=== PATIENT | male | born 1965 | race African-American/Black ===

== ENCOUNTER 2019-06-14 15:10 | Inpatient (IN) ==
[2019-06-14] MEDS ORDERED: ZALEPLON 5 MG CAPSULE PO PRN (17:23)
[2019-06-14] MEDS ORDERED: GLUCAGON 1 MG VIAL IM PRN (17:23)
[2019-06-14] MEDS ORDERED: ACETAMINOPHEN 325 MG TABLET PO PRN (17:23)
[2019-06-14] MEDS ORDERED: diphenhydrAMINE CAP 25 MG CAPSULE PO PRN (17:23)
[2019-06-14] MEDS ORDERED: ONDANSETRON 4 MG/2 ML VIAL IV PRN (17:23)
[2019-06-14] MEDS ORDERED: guaiFENesin/DM ER 600-30 MG TABLET PO PRN (17:23)
[2019-06-14] MEDS ORDERED: DEXTROSE 50% 25 GM/50 ML VIAL IV PRN (17:23)
[2019-06-14] MEDS ORDERED: NITROGLYCERIN SL 0.4 MG TABLET SL PRN (17:29)
[2019-06-14] MEDS ORDERED: ALBUTEROL 2.5 MG/3 ML NEB RESP TX PRN (17:34)
[2019-06-14] MEDS: SODIUM CHLORIDE 0.9% 1,000 ML IV SCH (18:45)
[2019-06-14] MEDS: HEPARIN 5,000 UNIT/1 ML VIAL SUBCUT SCH (18:45)
[2019-06-14] MEDS ORDERED: ATORVASTATIN 10 MG TABLET PO SCH (21:00)
[2019-06-14] MEDS: INSULIN REGULAR 100 UNIT/ML SUBCUT SCH (21:04)
[2019-06-14 23:12] LABS: Barbiturates Screen,Urine Negative (Negative); Benzodiazepines Screen,Urine Negative (Negative); Cannabinoid Screen,Urine Negative (Negative); Opiate Screen,Urine Negative (Negative); Phencyclidine Screen,Urine Negative (Negative)
[2019-06-14 23:32] LABS: Microalbum/Creat Ratio Random 67.6 RATIO (0-30)
[2019-06-15] MEDS: HEPARIN 5,000 UNIT/1 ML VIAL SUBCUT SCH ×3 (01:33→16:36)
[2019-06-15] MEDS: SODIUM CHLORIDE 0.9% 1,000 ML IV SCH ×3 (02:14→17:45)
[2019-06-15 06:02] LABS: Basophils % 0.7 % (0.0-0.8); Eosinophils # 0.2 10*3/uL (0.0-0.87); Eosinophils % 4.3 % (0.00-10.9); Hematocrit 36.1 VOL% (42.0-52.0); Hemoglobin 12.4 GM/DL (14.0-18.0); Immature Granulocytes % 1.4 %; Immature Granulocytes Absolute 0.06 #; Lymphocytes # 1.1 10*3/uL (1.4-4.0); Lymphocytes % 25.6 % (21.2-54.2); Mean Corpuscular HGB Conc 34.3 GM/DL (32-36); Mean Corpuscular Volume 86.4 FL (87-102); Mean Platelet Volume 10.4 FL (9.6-12.0); Monocytes % 15.8 % (1.7-12.7); NRBC # 0.05 10*3/uL; Neutrophils % 52.2 % (38.7-73.9); Platelet Count 105 T/CUMM (130-400); Red Blood Count 4.18 MC/CUMM (3.8-5.5); Red Cell Distribution Width 13.3 % (9.3-17.3); White Blood Count 4.2 T/CUMM (4-12)
[2019-06-15 06:45] LABS: Hypochromasia Slight; Lymphocytes 19 % (20-55); Platelet Estimate Decreased; Segmented Neutrophils 78 % (50-85); Total Cells Counted 100
[2019-06-15 06:50] LABS: Alanine Aminotransferase 1146 U/L (16-61); Albumin 2.4 G/DL (3.4-5.0); Alkaline Phosphatase 221 U/L (45-117); Aspartate Amino Transferase 756 U/L (0-37); Blood Urea Nitrogen 35 MG/DL (7-18); Calcium 7.7 MG/DL (8.5-10.1); Glucose 208 MG/DL (74-106); HDL Cholesterol < 10 MG/DL (40-60); Thyroid Stimulating Hormone 0.307 uIU/ml (0.358-3.74); Total Protein 5.8 G/DL (6.4-8.3); Triglycerides 1811 MG/DL (2-150); VLDL CHOLESTEROL 362.2 MG/DL
[2019-06-15] MEDS ORDERED: INSULIN GLARGINE 100 UNIT/ML SUBCUT SCH (09:00)
[2019-06-15] MEDS: INSULIN REGULAR 100 UNIT/ML SUBCUT SCH ×4 (09:35→21:05)
[2019-06-15] MEDS: amLODIPine 10 MG TABLET PO SCH (09:39)
[2019-06-15] MEDS: PANTOPRAZOLE 40 MG TABLET PO SCH (09:39)
[2019-06-15] MEDS: OMEGA 3 ACID ETHYL ESTERS 1 GM CAPSULE PO SCH ×2 (09:41→21:05)
[2019-06-15 09:51] LABS: Hepatitis B Core IgM Quant 0.06 Index; Hepatitis B Surface Ag Quant < 0.10 Index; Hepatitis B Surface Ag Result Negative (Negative); Hepatitis C Virus Ab Quant < 0.02 Index; Hepatitis C Virus Ab Result Negative (Negative)
[2019-06-15 15:47] LABS: Apearance,Urine CLEAR (Clear); Bilirubin,Urine Negative (Negative); Blood, Urine Large mg/dL (Negative); Glucose,Urine (UA) 150 mg/dL (Negative); Ketones,Urine Negative (Negative); Mucus,Urine Occasional /LPF (Occasional); Nitrite,Urine Negative (Negative); Protein,Urine Negative; RBC,Urine 2 /HPF (0-4); Urine Color Yellow (Yellow); Urine Specific Gravity 1.005 (1.001-1.035); Urine Urobilinogen < 2.0 EU/DL (0.2-1.0); WBC,Urine 2 /HPF (0-6)
[2019-06-15] MEDS ORDERED: ATORVASTATIN 40 MG TABLET PO SCH (21:00)
[2019-06-16] MEDS: HEPARIN 5,000 UNIT/1 ML VIAL SUBCUT SCH ×3 (00:40→18:51)
[2019-06-16] MEDS: SODIUM CHLORIDE 0.9% 1,000 ML IV SCH ×3 (00:42→18:51)
[2019-06-16] MEDS: amLODIPine 10 MG TABLET PO SCH (09:05)
[2019-06-16] MEDS: OMEGA 3 ACID ETHYL ESTERS 1 GM CAPSULE PO SCH ×2 (09:05→20:18)
[2019-06-16] MEDS: PANTOPRAZOLE 40 MG TABLET PO SCH (09:05)
[2019-06-16] MEDS: INSULIN REGULAR 100 UNIT/ML SUBCUT SCH ×4 (09:06→20:18)
[2019-06-16 09:39] LABS: Basophils # 0.1 10*3/uL (0.0-0.2); Basophils % 0.9 % (0.0-0.8); Eosinophils # 0.3 10*3/uL (0.0-0.87); Eosinophils % 4.7 % (0.00-10.9); Hematocrit 39.6 VOL% (42.0-52.0); Hemoglobin 13.9 GM/DL (14.0-18.0); Immature Granulocytes % 0.9 %; Immature Granulocytes Absolute 0.05 #; Lymphocytes # 1.5 10*3/uL (1.4-4.0); Lymphocytes % 27.7 % (21.2-54.2); Mean Corpuscular HGB Conc 35.1 GM/DL (32-36); Mean Platelet Volume 11.8 FL (9.6-12.0); Monocytes % 19.1 % (1.7-12.7); NRBC # 0.02 10*3/uL; Neutrophils % 46.7 % (38.7-73.9); Platelet Count 101 T/CUMM (130-400); Red Blood Count 4.55 MC/CUMM (3.8-5.5); White Blood Count 5.3 T/CUMM (4-12)
[2019-06-16 10:04] LABS: Albumin 2.8 G/DL (3.4-5.0); Bilirubin,Total 1.1 MG/DL (0.2-1.0); Calcium 7.9 MG/DL (8.5-10.1)
[2019-06-16 10:09] LABS: Eosinophils 10 % (0-10); Lymphocytes 24 % (20-55); Platelet Estimate Decreased; Segmented Neutrophils 54 % (50-85); Total Cells Counted 100
[2019-06-16 10:10] LABS: Hypochromasia Slight
[2019-06-16 10:19] LABS: Osmolality,Calculated 292.1 MOS/KG (273-304); Total Protein 6.7 G/DL (6.4-8.3)
[2019-06-16] MEDS ORDERED: MAGNESIUM SULF RIDER 4 GM in PREMIX 1 EACH IV PRN (10:20)
[2019-06-16] MEDS ORDERED: MAGNESIUM SULF RIDER 2 GM in PREMIX 1 EACH IV PRN (10:20)
[2019-06-16] MEDS: FOLIC ACID 1 MG TABLET PO SCH (11:14)
[2019-06-16] MEDS: THIAMINE 100 MG TABLET PO SCH (11:14)
[2019-06-16] MEDS: MULTIVITAMIN (CENTRUM) TABLET PO SCH (11:14)
[2019-06-16] MEDS: hydrALAZINE 20 MG/1 ML VIAL IV PRN (21:40)
[2019-06-17] MEDS: SODIUM CHLORIDE 0.9% 1,000 ML IV SCH ×2 (01:18→11:24)
[2019-06-17] MEDS: HEPARIN 5,000 UNIT/1 ML VIAL SUBCUT SCH ×2 (01:18→09:03)
[2019-06-17 05:54] LABS: Basophils # 0.1 10*3/uL (0.0-0.2); Eosinophils # 0.3 10*3/uL (0.0-0.87); Eosinophils % 4.7 % (0.00-10.9); Hematocrit 37.2 VOL% (42.0-52.0); Hemoglobin 13.5 GM/DL (14.0-18.0); Immature Granulocytes % 1.6 %; Immature Granulocytes Absolute 0.11 #; Lymphocytes % 29.9 % (21.2-54.2); Mean Corpuscular HGB Conc 36.3 GM/DL (32-36); Mean Corpuscular Volume 86.9 FL (87-102); Mean Platelet Volume 11.8 FL (9.6-12.0); Neutrophils % 43.8 % (38.7-73.9); Red Blood Count 4.28 MC/CUMM (3.8-5.5); Red Cell Distribution Width 14.7 % (9.3-17.3); White Blood Count 6.8 T/CUMM (4-12)
[2019-06-17 05:58] LABS: Platelet Count 91 T/CUMM (130-400)
[2019-06-17 06:19] LABS: Eosinophils 12 % (0-10); Hypochromasia Slight; Lymphocytes 23 % (20-55); Platelet Estimate Decreased; Segmented Neutrophils 50 % (50-85); Total Cells Counted 100
[2019-06-17 06:59] LABS: Albumin 2.7 G/DL (3.4-5.0); Bilirubin,Total 1.1 MG/DL (0.2-1.0); Calcium 7.9 MG/DL (8.5-10.1)
[2019-06-17 07:15] LABS: Osmolality,Calculated 296.6 MOS/KG (273-304); Total Protein 6.7 G/DL (6.4-8.3)
[2019-06-17] MEDS: hydrALAZINE 20 MG/1 ML VIAL IV PRN (07:31)
[2019-06-17] MEDS: INSULIN REGULAR 100 UNIT/ML SUBCUT SCH (09:02)
[2019-06-17] MEDS: MULTIVITAMIN (CENTRUM) TABLET PO SCH (09:03)
[2019-06-17] MEDS: amLODIPine 10 MG TABLET PO SCH (09:03)
[2019-06-17] MEDS: PANTOPRAZOLE 40 MG TABLET PO SCH (09:03)
[2019-06-17] MEDS: FOLIC ACID 1 MG TABLET PO SCH (09:03)
[2019-06-17] MEDS: OMEGA 3 ACID ETHYL ESTERS 1 GM CAPSULE PO SCH (09:03)
[2019-06-17] MEDS: THIAMINE 100 MG TABLET PO SCH (09:03)
[2019-06-17 09:57] VITALS: BP 140/93
== END 2019-06-17 12:45 | disposition home or self-care (01) ==
LOC: INTOOBSV 16:40 → N.2E 16:40 → SUATTDRO 16:40 → SUPCPDRO 06-15 14:22
PROVIDERS: ADMIT Internal Medicine; ATTEND Internal Medicine

== ENCOUNTER 2020-10-24 11:32 | Inpatient (IN) ==
[2020-10-24] MEDS ORDERED: LEVOFLOXACIN INJ 500 MG in PREMIX 1 EACH IV STA (12:11)
[2020-10-24 12:48] LABS: Basophils % 0.1 % (0.0-0.8); Hematocrit 38.7 VOL% (42.0-52.0); Hemoglobin 13.3 GM/DL (14.0-18.0); Immature Granulocytes % 0.6 %; Immature Granulocytes Absolute 0.04 #; Lymphocytes # 1.4 10*3/uL (1.4-4.0); Lymphocytes % 20.8 % (21.2-54.2); Mean Corpuscular HGB Conc 34.4 GM/DL (32-36); Mean Corpuscular Volume 89.6 FL (87-102); Mean Platelet Volume 10.4 FL (9.6-12.0); Monocytes % 10.8 % (1.7-12.7); Neutrophils % 67.7 % (38.7-73.9); Platelet Count 115 T/CUMM (130-400); Red Blood Count 4.32 MC/CUMM (3.8-5.5); White Blood Count 6.7 T/CUMM (4-12)
[2020-10-24 12:58] LABS: PT Patient Result 10.4 SECS (9.8-11.9)
[2020-10-24 13:15] LABS: Alanine Aminotransferase 52 U/L (16-61); Albumin 3.3 G/DL (3.4-5.0); Alkaline Phosphatase 92 U/L (45-117); Aspartate Amino Transferase 60 U/L (0-37); Blood Urea Nitrogen 8 MG/DL (7-18); Calcium 7.9 MG/DL (8.5-10.1); Estimated Glom Filtration Rate 102 ML/MIN; Glucose 308 MG/DL (74-106); Osmolality,Calculated 277.2 MOS/KG (273-304)
[2020-10-24] MEDS ORDERED: DEXTROSE 50% 25 GM/50 ML VIAL IV PRN (13:21)
[2020-10-24] MEDS ORDERED: GLUCAGON 1 MG VIAL IM PRN (13:21)
[2020-10-24] MEDS ORDERED: CETIRIZINE 10 MG TABLET PO PRN (13:21)
[2020-10-24] MEDS ORDERED: hydrALAZINE 20 MG/1 ML VIAL IV PRN (13:21)
[2020-10-24] MEDS ORDERED: ONDANSETRON 4 MG/2 ML VIAL IV PRN (13:21)
[2020-10-24 13:54] LABS: Risk Ratio 3.85; Thyroid Stimulating Hormone 2.18 uIU/ml (0.358-3.74); VLDL CHOLESTEROL 107.2 MG/DL
[2020-10-24] MEDS ORDERED: PHENOL 1.4% THROAT SPRAY 177 ML BOTTLE PO PRN (14:01)
[2020-10-24] MEDS ORDERED: NITROGLYCERIN SL 0.4 MG TABLET SL PRN (14:07)
[2020-10-24] MEDS ORDERED: LORazepam 2 MG/1 ML VIAL IV PRN (14:09)
[2020-10-24 14:51] LABS: Folate 17.5 NG/ML (5.4-24.0)
[2020-10-24] MEDS ORDERED: MAGNESIUM SULF RIDER 2 GM in PREMIX 1 EACH IV ONE (15:52)
[2020-10-24] MEDS: DEXAMETHASONE 10 MG/1 ML VIAL IV SCH (17:00)
[2020-10-24] MEDS: cefTRIAXone 1,000 MG in SYRINGE 1 EACH IV SCH (17:05)
[2020-10-24] MEDS: SODIUM CHLORIDE 0.9% 1,000 ML IV SCH (17:10)
[2020-10-24] MEDS: ZINC SULFATE 220 MG CAPSULE PO SCH (17:29)
[2020-10-24] MEDS: CHOLECALCIFEROL 1,000 UNIT TABLET PO SCH (17:29)
[2020-10-24] MEDS: INSULIN LISPRO 100 UNIT/ML SUBCUT SCH ×2 (18:21→20:27)
[2020-10-24] MEDS: ACETAMINOPHEN 325 MG TABLET PO PRN (18:21)
[2020-10-24] MEDS: GABAPENTIN 400 MG CAPSULE PO SCH ×2 (18:21→20:27)
[2020-10-24] MEDS: AMITRIPTYLINE 75 MG TABLET PO SCH (20:27)
[2020-10-24] MEDS: traZODone 50 MG TABLET PO SCH (20:27)
[2020-10-24] MEDS: ATORVASTATIN 40 MG TABLET PO SCH (20:27)
[2020-10-24] MEDS: ASCORBIC ACID 500 MG TABLET PO SCH (20:27)
[2020-10-24] MEDS: carvediloL 12.5 MG TABLET PO SCH (20:27)
[2020-10-24] MEDS: ENOXAPARIN 40 MG/0.4 ML SYRINGE SUBCUT SCH (20:27)
[2020-10-24] MEDS: AZITHROMYCIN INJ 500 MG in SODIUM CHLORIDE 0.9% 250 ML IV SCH (20:28)
[2020-10-24] MEDS ORDERED: chlordiazePOXIDE 25 MG CAPSULE PO ONE (20:41)
[2020-10-25] MEDS: ALBUTEROL INHALER 18 GM INH SCH ×4 (01:56→18:59)
[2020-10-25] MEDS: SODIUM CHLORIDE 0.9% 1,000 ML IV SCH ×2 (04:31→17:45)
[2020-10-25 05:45] LABS: Hematocrit 36.8 VOL% (42.0-52.0); Hemoglobin 12.4 GM/DL (14.0-18.0); Immature Granulocytes % 1.3 %; Immature Granulocytes Absolute 0.06 #; Lymphocytes # 1.1 10*3/uL (1.4-4.0); Lymphocytes % 22.1 % (21.2-54.2); Mean Corpuscular HGB Conc 33.7 GM/DL (32-36); Mean Corpuscular Volume 89.5 FL (87-102); Mean Platelet Volume 10.6 FL (9.6-12.0); Monocytes % 10.1 % (1.7-12.7); Neutrophils % 66.5 % (38.7-73.9); Platelet Count 123 T/CUMM (130-400); Red Blood Count 4.11 MC/CUMM (3.8-5.5); Red Cell Distribution Width 14.1 % (9.3-17.3); White Blood Count 4.8 T/CUMM (4-12)
[2020-10-25 06:00] LABS: Calcium 7.9 MG/DL (8.5-10.1); Osmolality,Calculated 272.2 MOS/KG (273-304)
[2020-10-25 06:05] LABS: Hypochromasia Slight; Platelet Estimate Normal
[2020-10-25 06:09] LABS: Microcytosis Slight
[2020-10-25] MEDS ORDERED: REMDESIVIR 200 MG in SODIUM CHLORIDE 0.9% 210 ML IV ONE (09:30)
[2020-10-25] MEDS: INSULIN LISPRO 100 UNIT/ML SUBCUT SCH ×4 (09:33→21:36)
[2020-10-25] MEDS: lisinopriL 5 MG TABLET PO SCH (09:36)
[2020-10-25] MEDS: PANTOPRAZOLE 40 MG TABLET PO SCH (09:36)
[2020-10-25] MEDS: CHOLECALCIFEROL 1,000 UNIT TABLET PO SCH (09:37)
[2020-10-25] MEDS: metFORMIN 500 MG TABLET PO SCH (09:37)
[2020-10-25] MEDS: GABAPENTIN 400 MG CAPSULE PO SCH ×3 (09:37→21:37)
[2020-10-25] MEDS: MULTIVITAMIN (CENTRUM) TABLET PO SCH (09:37)
[2020-10-25] MEDS: MONTELUKAST 10 MG TABLET PO SCH (09:38)
[2020-10-25] MEDS: THIAMINE 100 MG TABLET PO SCH (09:38)
[2020-10-25] MEDS: ASCORBIC ACID 500 MG TABLET PO SCH ×2 (09:38→21:37)
[2020-10-25] MEDS: carvediloL 12.5 MG TABLET PO SCH ×2 (09:39→21:36)
[2020-10-25] MEDS: POTASSIUM CHLORIDE 8 MEQ CAPSULE PO SCH (09:39)
[2020-10-25] MEDS: amLODIPine 10 MG TABLET PO SCH (09:39)
[2020-10-25] MEDS: FOLIC ACID 1 MG TABLET PO SCH (09:39)
[2020-10-25] MEDS: DEXAMETHASONE 10 MG/1 ML VIAL IV SCH (12:28)
[2020-10-25] MEDS: ZINC SULFATE 220 MG CAPSULE PO SCH (12:29)
[2020-10-25] MEDS ORDERED: SODIUM CHLORIDE 0.9% 1,000 ML IV PRN (14:12)
[2020-10-25] MEDS: cefTRIAXone 1,000 MG in SYRINGE 1 EACH IV SCH (16:11)
[2020-10-25] MEDS ORDERED: FUROSEMIDE 40 MG/4 ML VIAL IV ONE (17:36)
[2020-10-25] MEDS: INSULIN GLARGINE 100 UNIT/ML SUBCUT SCH (21:36)
[2020-10-25] MEDS: AMITRIPTYLINE 75 MG TABLET PO SCH (21:36)
[2020-10-25] MEDS: traZODone 50 MG TABLET PO SCH (21:36)
[2020-10-25] MEDS: AZITHROMYCIN INJ 500 MG in SODIUM CHLORIDE 0.9% 250 ML IV SCH (21:37)
[2020-10-25] MEDS: ENOXAPARIN 40 MG/0.4 ML SYRINGE SUBCUT SCH (21:37)
[2020-10-25] MEDS: ATORVASTATIN 40 MG TABLET PO SCH (21:37)
[2020-10-26] MEDS: ALBUTEROL INHALER 18 GM INH SCH ×4 (01:31→19:10)
[2020-10-26 06:12] LABS: Basophils % 0.2 % (0.0-0.8); Hematocrit 34.7 VOL% (42.0-52.0); Hemoglobin 11.8 GM/DL (14.0-18.0); Immature Granulocytes % 1.2 %; Immature Granulocytes Absolute 0.07 #; Lymphocytes # 1.2 10*3/uL (1.4-4.0); Lymphocytes % 19.3 % (21.2-54.2); Mean Corpuscular Volume 90.4 FL (87-102); Mean Platelet Volume 10.6 FL (9.6-12.0); Monocytes % 15.8 % (1.7-12.7); Neutrophils % 63.5 % (38.7-73.9); Platelet Count 182 T/CUMM (130-400); Red Blood Count 3.84 MC/CUMM (3.8-5.5); Red Cell Distribution Width 14.3 % (9.3-17.3)
[2020-10-26 06:33] LABS: Calcium 8.3 MG/DL (8.5-10.1); Osmolality,Calculated 280.7 MOS/KG (273-304)
[2020-10-26 07:00] LABS: Band Neutrophils 2 % (0-10); Lymphocytes 18 % (20-55); Metamyelocytes 2 %; Platelet Estimate Normal; Segmented Neutrophils 61 % (50-85); Total Cells Counted 100
[2020-10-26] MEDS: carvediloL 12.5 MG TABLET PO SCH ×2 (09:38→23:29)
[2020-10-26] MEDS: ENOXAPARIN 60 MG/0.6 ML SYRINGE SUBCUT SCH ×2 (09:38→22:50)
[2020-10-26] MEDS: DEXAMETHASONE 10 MG/1 ML VIAL IV SCH (09:38)
[2020-10-26] MEDS: MULTIVITAMIN (CENTRUM) TABLET PO SCH (09:38)
[2020-10-26] MEDS: INSULIN LISPRO 100 UNIT/ML SUBCUT SCH ×4 (09:38→22:50)
[2020-10-26] MEDS: amLODIPine 10 MG TABLET PO SCH (09:40)
[2020-10-26] MEDS: PANTOPRAZOLE 40 MG TABLET PO SCH (09:40)
[2020-10-26] MEDS: FOLIC ACID 1 MG TABLET PO SCH (09:40)
[2020-10-26] MEDS: POTASSIUM CHLORIDE 8 MEQ CAPSULE PO SCH (09:40)
[2020-10-26] MEDS: lisinopriL 5 MG TABLET PO SCH (09:40)
[2020-10-26] MEDS: metFORMIN 500 MG TABLET PO SCH (09:40)
[2020-10-26] MEDS: GABAPENTIN 400 MG CAPSULE PO SCH ×3 (09:40→22:50)
[2020-10-26] MEDS: MONTELUKAST 10 MG TABLET PO SCH (09:41)
[2020-10-26] MEDS: ASCORBIC ACID 500 MG TABLET PO SCH ×2 (09:41→22:50)
[2020-10-26] MEDS: THIAMINE 100 MG TABLET PO SCH (09:41)
[2020-10-26] MEDS: CHOLECALCIFEROL 1,000 UNIT TABLET PO SCH (09:41)
[2020-10-26] MEDS: ZINC SULFATE 220 MG CAPSULE PO SCH (09:41)
[2020-10-26] MEDS: REMDESIVIR 100 MG in SODIUM CHLORIDE 0.9% 230 ML IV SCH (10:12)
[2020-10-26] MEDS ORDERED: BENZONATATE 100 MG CAPSULE PO PRN (16:34)
[2020-10-26] MEDS: cefTRIAXone 1,000 MG in SYRINGE 1 EACH IV SCH (17:33)
[2020-10-26] MEDS: traZODone 50 MG TABLET PO SCH (22:50)
[2020-10-26] MEDS: AMITRIPTYLINE 75 MG TABLET PO SCH (22:50)
[2020-10-26] MEDS: ATORVASTATIN 40 MG TABLET PO SCH (22:50)
[2020-10-26] MEDS: INSULIN GLARGINE 100 UNIT/ML SUBCUT SCH (22:50)
[2020-10-26] MEDS: AZITHROMYCIN INJ 500 MG in SODIUM CHLORIDE 0.9% 250 ML IV SCH (23:00)
[2020-10-27] MEDS: ALBUTEROL INHALER 18 GM INH SCH ×4 (01:15→18:14)
[2020-10-27 06:06] LABS: Basophils % 0.2 % (0.0-0.8); Hematocrit 36.8 VOL% (42.0-52.0); Hemoglobin 12.2 GM/DL (14.0-18.0); Immature Granulocytes % 1.9 %; Immature Granulocytes Absolute 0.16 #; Lymphocytes # 1.5 10*3/uL (1.4-4.0); Lymphocytes % 17.2 % (21.2-54.2); Mean Corpuscular HGB Conc 33.2 GM/DL (32-36); Mean Corpuscular Volume 91.3 FL (87-102); Mean Platelet Volume 10.5 FL (9.6-12.0); Monocytes % 18.8 % (1.7-12.7); NRBC # 0.02 10*3/uL; Neutrophils % 61.9 % (38.7-73.9); Platelet Count 266 T/CUMM (130-400); Red Blood Count 4.03 MC/CUMM (3.8-5.5); Red Cell Distribution Width 14.1 % (9.3-17.3); White Blood Count 8.6 T/CUMM (4-12)
[2020-10-27 06:14] LABS: Calcium 8.9 MG/DL (8.5-10.1); Osmolality,Calculated 283.4 MOS/KG (273-304)
[2020-10-27 07:25] LABS: Band Neutrophils 1 % (0-10); Hypochromasia 1+; Lymphocytes 21 % (20-55); Microcytosis Slight; Platelet Estimate Normal; Segmented Neutrophils 66 % (50-85); Total Cells Counted 100
[2020-10-27] MEDS: INSULIN LISPRO 100 UNIT/ML SUBCUT SCH ×4 (08:20→21:25)
[2020-10-27] MEDS: FOLIC ACID 1 MG TABLET PO SCH (09:08)
[2020-10-27] MEDS: ENOXAPARIN 60 MG/0.6 ML SYRINGE SUBCUT SCH ×2 (09:08→21:25)
[2020-10-27] MEDS: MULTIVITAMIN (CENTRUM) TABLET PO SCH (09:08)
[2020-10-27] MEDS: DEXAMETHASONE 10 MG/1 ML VIAL IV SCH (09:08)
[2020-10-27] MEDS: carvediloL 12.5 MG TABLET PO SCH ×2 (09:08→21:25)
[2020-10-27] MEDS: PANTOPRAZOLE 40 MG TABLET PO SCH (09:09)
[2020-10-27] MEDS: metFORMIN 500 MG TABLET PO SCH (09:09)
[2020-10-27] MEDS: lisinopriL 5 MG TABLET PO SCH (09:09)
[2020-10-27] MEDS: REMDESIVIR 100 MG in SODIUM CHLORIDE 0.9% 230 ML IV SCH (09:09)
[2020-10-27] MEDS: THIAMINE 100 MG TABLET PO SCH (09:09)
[2020-10-27] MEDS: amLODIPine 10 MG TABLET PO SCH (09:09)
[2020-10-27] MEDS: MONTELUKAST 10 MG TABLET PO SCH (09:09)
[2020-10-27] MEDS: ASCORBIC ACID 500 MG TABLET PO SCH ×2 (09:09→21:25)
[2020-10-27] MEDS: GABAPENTIN 400 MG CAPSULE PO SCH ×3 (09:09→21:25)
[2020-10-27] MEDS: POTASSIUM CHLORIDE 8 MEQ CAPSULE PO SCH (09:09)
[2020-10-27] MEDS: CHOLECALCIFEROL 1,000 UNIT TABLET PO SCH (09:10)
[2020-10-27] MEDS: ZINC SULFATE 220 MG CAPSULE PO SCH (09:10)
[2020-10-27] MEDS: cefTRIAXone 1,000 MG in SYRINGE 1 EACH IV SCH (16:20)
[2020-10-27] MEDS: traZODone 50 MG TABLET PO SCH (21:25)
[2020-10-27] MEDS: guaiFENesin/CODEINE 5 ML LIQUID PO PRN (21:25)
[2020-10-27] MEDS: ATORVASTATIN 40 MG TABLET PO SCH (21:25)
[2020-10-27] MEDS: INSULIN GLARGINE 100 UNIT/ML SUBCUT SCH (21:25)
[2020-10-27] MEDS: AZITHROMYCIN INJ 500 MG in SODIUM CHLORIDE 0.9% 250 ML IV SCH (21:25)
[2020-10-27] MEDS: AMITRIPTYLINE 75 MG TABLET PO SCH (21:25)
[2020-10-28] MEDS: ALBUTEROL INHALER 18 GM INH SCH ×4 (01:43→18:22)
[2020-10-28] MEDS: ENOXAPARIN 60 MG/0.6 ML SYRINGE SUBCUT SCH ×2 (08:30→20:45)
[2020-10-28] MEDS: DEXAMETHASONE 10 MG/1 ML VIAL IV SCH (08:30)
[2020-10-28] MEDS: metFORMIN 500 MG TABLET PO SCH (08:30)
[2020-10-28] MEDS: PANTOPRAZOLE 40 MG TABLET PO SCH (08:31)
[2020-10-28] MEDS: ASCORBIC ACID 500 MG TABLET PO SCH ×2 (08:31→21:43)
[2020-10-28] MEDS: CHOLECALCIFEROL 1,000 UNIT TABLET PO SCH (08:31)
[2020-10-28] MEDS: MONTELUKAST 10 MG TABLET PO SCH (08:31)
[2020-10-28] MEDS: FOLIC ACID 1 MG TABLET PO SCH (08:31)
[2020-10-28] MEDS: POTASSIUM CHLORIDE 8 MEQ CAPSULE PO SCH (08:31)
[2020-10-28] MEDS: lisinopriL 5 MG TABLET PO SCH (08:31)
[2020-10-28] MEDS: amLODIPine 10 MG TABLET PO SCH (08:31)
[2020-10-28] MEDS: carvediloL 12.5 MG TABLET PO SCH ×2 (08:31→21:42)
[2020-10-28] MEDS: ZINC SULFATE 220 MG CAPSULE PO SCH (08:31)
[2020-10-28] MEDS: GABAPENTIN 400 MG CAPSULE PO SCH ×3 (08:31→21:43)
[2020-10-28] MEDS: MULTIVITAMIN (CENTRUM) TABLET PO SCH (08:31)
[2020-10-28] MEDS: THIAMINE 100 MG TABLET PO SCH (08:31)
[2020-10-28] MEDS: INSULIN LISPRO 100 UNIT/ML SUBCUT SCH ×4 (08:31→21:42)
[2020-10-28] MEDS: REMDESIVIR 100 MG in SODIUM CHLORIDE 0.9% 230 ML IV SCH (08:32)
[2020-10-28 09:26] LABS: ABG Base Excess 3.6 MMOL/L (-2.5-2.5); ABG HCO3 27.4 MMOL/L (20-26); ABG Oxygen Saturation 85.3 % (95-100); ABG PO2 53.4 MM HG (80-95); ABG TCO2 24.2 MMOL/L (23-27)
[2020-10-28] MEDS: cefTRIAXone 1,000 MG in SYRINGE 1 EACH IV SCH (16:12)
[2020-10-28 16:53] LABS: ABG Base Excess 3.8 MMOL/L (-2.5-2.5); ABG HCO3 27.2 MMOL/L (20-26); ABG PCO2 39.6 MM HG (35-48); ABG PH 7.456 (7.35-7.45); ABG TCO2 24.8 MMOL/L (23-27)
[2020-10-28 16:57] LABS: ABG PO2 39.9 MM HG (80-95)
[2020-10-28] MEDS: ATORVASTATIN 40 MG TABLET PO SCH (21:42)
[2020-10-28] MEDS: AMITRIPTYLINE 75 MG TABLET PO SCH (21:42)
[2020-10-28] MEDS: traZODone 50 MG TABLET PO SCH (21:42)
[2020-10-28] MEDS: INSULIN GLARGINE 100 UNIT/ML SUBCUT SCH (21:42)
[2020-10-28] MEDS: AZITHROMYCIN INJ 500 MG in SODIUM CHLORIDE 0.9% 250 ML IV SCH (21:43)
[2020-10-29] MEDS: ALBUTEROL INHALER 18 GM INH SCH ×4 (01:02→21:23)
[2020-10-29 08:57] LABS: Hematocrit 36.4 VOL% (42.0-52.0); Hemoglobin 12.5 GM/DL (14.0-18.0); White Blood Count 13.6 T/CUMM (4-12)
[2020-10-29 08:58] LABS: Basophils % 0.1 % (0.0-0.8); Eosinophils # 0.1 10*3/uL (0.0-0.87); Eosinophils % 0.8 % (0.00-10.9); Immature Granulocytes % 4.6 %; Immature Granulocytes Absolute 0.63 #; Lymphocytes # 2.2 10*3/uL (1.4-4.0); Lymphocytes % 15.8 % (21.2-54.2); Mean Corpuscular HGB Conc 34.3 GM/DL (32-36); Mean Corpuscular Volume 88.8 FL (87-102); Mean Platelet Volume 9.6 FL (9.6-12.0); Monocytes % 13.4 % (1.7-12.7); NRBC # 0.24 10*3/uL; Neutrophils % 65.3 % (38.7-73.9); Platelet Count 334 T/CUMM (130-400); Red Cell Distribution Width 14.2 % (9.3-17.3)
[2020-10-29 09:03] LABS: ABG Base Excess 5.1 MMOL/L (-2.5-2.5); ABG HCO3 28.9 MMOL/L (20-26); ABG Oxygen Saturation 80.4 % (95-100); ABG PCO2 39.5 MM HG (35-48); ABG PH 7.482 (7.35-7.45); ABG PO2 47.8 MM HG (80-95); ABG TCO2 30.1 MMOL/L (23-27)
[2020-10-29] MEDS: INSULIN LISPRO 100 UNIT/ML SUBCUT SCH ×4 (09:04→21:23)
[2020-10-29] MEDS: ENOXAPARIN 60 MG/0.6 ML SYRINGE SUBCUT SCH ×2 (09:04→21:23)
[2020-10-29] MEDS: REMDESIVIR 100 MG in SODIUM CHLORIDE 0.9% 230 ML IV SCH (09:04)
[2020-10-29] MEDS: POTASSIUM CHLORIDE 8 MEQ CAPSULE PO SCH (09:05)
[2020-10-29] MEDS: GABAPENTIN 400 MG CAPSULE PO SCH ×3 (09:05→21:23)
[2020-10-29] MEDS: ACETAMINOPHEN 325 MG TABLET PO PRN (09:05)
[2020-10-29] MEDS: DEXAMETHASONE 10 MG/1 ML VIAL IV SCH (09:05)
[2020-10-29] MEDS: MULTIVITAMIN (CENTRUM) TABLET PO SCH (09:06)
[2020-10-29] MEDS: FOLIC ACID 1 MG TABLET PO SCH (09:06)
[2020-10-29] MEDS: MONTELUKAST 10 MG TABLET PO SCH (09:06)
[2020-10-29] MEDS: metFORMIN 500 MG TABLET PO SCH (09:06)
[2020-10-29] MEDS: PANTOPRAZOLE 40 MG TABLET PO SCH (09:06)
[2020-10-29] MEDS: ASCORBIC ACID 500 MG TABLET PO SCH ×2 (09:06→21:23)
[2020-10-29] MEDS: ZINC SULFATE 220 MG CAPSULE PO SCH (09:06)
[2020-10-29] MEDS: CHOLECALCIFEROL 1,000 UNIT TABLET PO SCH (09:07)
[2020-10-29] MEDS: amLODIPine 10 MG TABLET PO SCH (09:07)
[2020-10-29] MEDS: lisinopriL 5 MG TABLET PO SCH (09:07)
[2020-10-29] MEDS: carvediloL 12.5 MG TABLET PO SCH ×2 (09:07→22:09)
[2020-10-29] MEDS: THIAMINE 100 MG TABLET PO SCH (09:07)
[2020-10-29 09:20] LABS: Band Neutrophils 1 % (0-10); Calcium 8.8 MG/DL (8.5-10.1); Hypochromasia 1+; Lymphocytes 17 % (20-55); Microcytosis 1+; Nucleated Red Blood Cells 3 (0-5); Osmolality,Calculated 282.3 MOS/KG (273-304); Ovalocytes Slight; Platelet Estimate Adequate; Segmented Neutrophils 71 % (50-85); Total Cells Counted 100
[2020-10-29] MEDS ORDERED: FUROSEMIDE 40 MG/4 ML VIAL IV ONE (09:53)
[2020-10-29] MEDS: cefTRIAXone 1,000 MG in SYRINGE 1 EACH IV SCH (16:54)
[2020-10-29] MEDS: ATORVASTATIN 40 MG TABLET PO SCH (21:23)
[2020-10-29] MEDS: AMITRIPTYLINE 75 MG TABLET PO SCH (21:23)
[2020-10-29] MEDS: traZODone 50 MG TABLET PO SCH (21:23)
[2020-10-29] MEDS: INSULIN GLARGINE 100 UNIT/ML SUBCUT SCH (22:10)
[2020-10-30] MEDS: ALBUTEROL INHALER 18 GM INH SCH ×4 (02:41→18:22)
[2020-10-30] MEDS: INSULIN LISPRO 100 UNIT/ML SUBCUT SCH ×4 (08:30→21:40)
[2020-10-30] MEDS: ENOXAPARIN 60 MG/0.6 ML SYRINGE SUBCUT SCH ×2 (08:30→21:40)
[2020-10-30] MEDS: DEXAMETHASONE 10 MG/1 ML VIAL IV SCH (08:30)
[2020-10-30] MEDS: metFORMIN 500 MG TABLET PO SCH (08:31)
[2020-10-30] MEDS: THIAMINE 100 MG TABLET PO SCH (08:31)
[2020-10-30] MEDS: CHOLECALCIFEROL 1,000 UNIT TABLET PO SCH (08:31)
[2020-10-30] MEDS: POTASSIUM CHLORIDE 8 MEQ CAPSULE PO SCH (08:31)
[2020-10-30] MEDS: MULTIVITAMIN (CENTRUM) TABLET PO SCH (08:31)
[2020-10-30] MEDS: MONTELUKAST 10 MG TABLET PO SCH (08:31)
[2020-10-30] MEDS: GABAPENTIN 400 MG CAPSULE PO SCH ×3 (08:31→21:40)
[2020-10-30] MEDS: ASCORBIC ACID 500 MG TABLET PO SCH ×2 (08:31→21:40)
[2020-10-30] MEDS: FOLIC ACID 1 MG TABLET PO SCH (08:31)
[2020-10-30] MEDS: carvediloL 12.5 MG TABLET PO SCH ×2 (08:32→21:40)
[2020-10-30] MEDS: amLODIPine 10 MG TABLET PO SCH (08:32)
[2020-10-30] MEDS: lisinopriL 5 MG TABLET PO SCH (08:32)
[2020-10-30] MEDS: PANTOPRAZOLE 40 MG TABLET PO SCH (08:32)
[2020-10-30] MEDS: ZINC SULFATE 220 MG CAPSULE PO SCH (08:32)
[2020-10-30] MEDS: cefTRIAXone 1,000 MG in SYRINGE 1 EACH IV SCH (16:24)
[2020-10-30] MEDS: INSULIN GLARGINE 100 UNIT/ML SUBCUT SCH (21:40)
[2020-10-30] MEDS: AMITRIPTYLINE 75 MG TABLET PO SCH (21:40)
[2020-10-30] MEDS: traZODone 50 MG TABLET PO SCH (21:40)
[2020-10-30] MEDS: ATORVASTATIN 40 MG TABLET PO SCH (21:40)
[2020-10-30] MEDS: guaiFENesin/CODEINE 5 ML LIQUID PO PRN (22:28)
[2020-10-31] MEDS: ALBUTEROL INHALER 18 GM INH SCH ×3 (00:56→13:01)
[2020-10-31 04:33] LABS: ABG Base Excess 5.2 MMOL/L (-2.5-2.5); ABG HCO3 29.1 MMOL/L (20-26); ABG Oxygen Saturation 96.9 % (95-100); ABG PCO2 48.1 MM HG (35-48); ABG PH 7.414 (7.35-7.45); ABG PO2 93.7 MM HG (80-95); ABG TCO2 27.3 MMOL/L (23-27); Allen Test Positive
[2020-10-31 06:02] LABS: Basophils % 0.3 % (0.0-0.8); Eosinophils # 0.1 10*3/uL (0.0-0.87); Eosinophils % 0.5 % (0.00-10.9); Hematocrit 34.3 VOL% (42.0-52.0); Hemoglobin 11.6 GM/DL (14.0-18.0); Immature Granulocytes % 3.8 %; Immature Granulocytes Absolute 0.45 #; Lymphocytes # 1.6 10*3/uL (1.4-4.0); Lymphocytes % 13.1 % (21.2-54.2); Mean Corpuscular HGB Conc 33.8 GM/DL (32-36); Mean Corpuscular Volume 90.7 FL (87-102); Mean Platelet Volume 10.1 FL (9.6-12.0); Monocytes % 16.4 % (1.7-12.7); NRBC # 0.02 10*3/uL; Neutrophils % 65.9 % (38.7-73.9); Platelet Count 345 T/CUMM (130-400); Red Blood Count 3.78 MC/CUMM (3.8-5.5); Red Cell Distribution Width 13.9 % (9.3-17.3); White Blood Count 11.8 T/CUMM (4-12)
[2020-10-31 06:30] LABS: Calcium 8.7 MG/DL (8.5-10.1); Osmolality,Calculated 284.3 MOS/KG (273-304)
[2020-10-31 06:41] LABS: Atypical Lymphocytes Few; Band Neutrophils 1 % (0-10); Hypochromasia 1+; Lymphocytes 15 % (20-55); Segmented Neutrophils 71 % (50-85); Total Cells Counted 100
[2020-10-31 06:42] LABS: Microcytosis 1+; Platelet Estimate Normal
[2020-10-31] MEDS: THIAMINE 100 MG TABLET PO SCH (09:12)
[2020-10-31] MEDS: amLODIPine 10 MG TABLET PO SCH (09:12)
[2020-10-31] MEDS: carvediloL 12.5 MG TABLET PO SCH (09:12)
[2020-10-31] MEDS: FOLIC ACID 1 MG TABLET PO SCH (09:13)
[2020-10-31] MEDS: MULTIVITAMIN (CENTRUM) TABLET PO SCH (09:13)
[2020-10-31] MEDS: ASCORBIC ACID 500 MG TABLET PO SCH (09:13)
[2020-10-31] MEDS: MONTELUKAST 10 MG TABLET PO SCH (09:13)
[2020-10-31] MEDS: CHOLECALCIFEROL 1,000 UNIT TABLET PO SCH (09:14)
[2020-10-31] MEDS: GABAPENTIN 400 MG CAPSULE PO SCH ×2 (09:14→15:21)
[2020-10-31] MEDS: ZINC SULFATE 220 MG CAPSULE PO SCH (09:14)
[2020-10-31] MEDS: metFORMIN 500 MG TABLET PO SCH (09:14)
[2020-10-31] MEDS: POTASSIUM CHLORIDE 8 MEQ CAPSULE PO SCH (09:14)
[2020-10-31] MEDS: PANTOPRAZOLE 40 MG TABLET PO SCH (09:15)
[2020-10-31] MEDS: ENOXAPARIN 60 MG/0.6 ML SYRINGE SUBCUT SCH (09:15)
[2020-10-31] MEDS: lisinopriL 5 MG TABLET PO SCH (09:15)
[2020-10-31] MEDS: DEXAMETHASONE 10 MG/1 ML VIAL IV SCH (09:16)
[2020-10-31] MEDS: INSULIN LISPRO 100 UNIT/ML SUBCUT SCH ×2 (09:16→11:04)
[2020-10-31 11:04] VITALS: BP 110/70
[2020-11-01 05:48] LABS: PT Patient Result 11.2 SECS (9.8-11.9)
[2020-11-01 06:11] LABS: Basophils % 0.4 % (0.0-0.8); Eosinophils % 0.2 % (0.00-10.9); Hematocrit 43.4 VOL% (42.0-52.0); Immature Granulocytes % 0.2 %; Immature Granulocytes Absolute 0.01 #; Lymphocytes # 2.2 10*3/uL (1.4-4.0); Lymphocytes % 44.3 % (21.2-54.2); Mean Corpuscular HGB Conc 34.8 GM/DL (32-36); Mean Corpuscular Volume 93.5 FL (87-102); Mean Platelet Volume 10.1 FL (9.6-12.0); Monocytes % 18.2 % (1.7-12.7); Neutrophils % 36.7 % (38.7-73.9); Platelet Count 175 T/CUMM (130-400); Red Cell Distribution Width 13.1 % (9.3-17.3)
[2020-11-01 06:16] LABS: Calcium 8.8 MG/DL (8.5-10.1); Ferritin 276.7 ng/ml (26-388); Osmolality,Calculated 278.4 MOS/KG (273-304)
[2020-11-01 06:17] LABS: Hemoglobin 15.1 GM/DL (14.0-18.0); Red Blood Count 4.64 MC/CUMM (3.8-5.5); White Blood Count 4.9 T/CUMM (4-12)
[2020-11-01 06:47] LABS: Lymphocytes 43 % (20-55); Segmented Neutrophils 35 % (50-85); Total Cells Counted 100
[2020-11-01 06:48] LABS: Atypical Lymphocytes Few; Microcytosis 1+; Platelet Estimate Adequate
[2020-11-01 08:36] LABS: Sedimentation Rate-Westergren 22 MM/HR (0-20)
[2020-11-01] MEDS ORDERED: DEXAMETHASONE 4 MG TABLET PO SCH (09:00)
== END 2020-10-31 15:17 | disposition home health service (06) | DRG 177 ==
LOC: N.ED 11:32 → N.EDINP 11:32 → N.2E 17:04 → SUATTDRO 10-25 09:40
PROVIDERS: ADMIT Internal Medicine; ATTEND Internal Medicine